=== PATIENT | male | born 1965 ===

== ENCOUNTER 2023-01-12 13:07 | Emergency (ER) | payer OTHER, SELFPAY ==
[2023-01-12] MEDS ORDERED: Ibuprofen 200 MG TAB ONE (15:14)
[2023-01-12] MEDS ORDERED: Acetaminophen 325 MG TAB ONE (15:14)
[2023-01-12] MEDS ORDERED: Diazepam 5 MG TAB ONE (15:16)
== END 2023-01-12 15:37 | disposition home or self-care (01) ==
LOC: ERS 13:07
DX: M25.512 Pain in left shoulder (principal)